=== PATIENT | female | born 1940 | race Caucasian/White ===

== ENCOUNTER 2016-05-23 18:28 | Emergency (ER) | payer MEDICARE, OTHER ==
[~2016-05-23] VITALS: Ht 157.4 cm; Wt 68.0 kg
[~2016-05-23 18:28] MED LIST: ASPIRIN81 MG PO; HYDR12.5C PO; HYDROCODONE BIT1 T11 PO; LEXAPRO10 MG PO; LEXAPRO20 MG PO; LISINOPRIL10 MG PO; NORCO 325 MG-51 TAB PO; OMEPRAZOLE20 MG PO; TRAZODONE HCL50 MG PO; TRAZODONE50 MG PO
[2016-05-23] MEDS ORDERED: HYDROCODONE BIT1 T11 PO (21:02)
== END 2016-05-23 21:04 | disposition home or self-care (01) ==
LOC: ED 18:28
DX: S93.402A Sprain of unspecified ligament of left ankle, initial encounter (principal); Z79.82 Long term (current) use of aspirin; W18.30XA Fall on same level, unspecified, initial encounter; Y93.01 Activity, walking, marching and hiking; Y92.096 Garden or yard of other non-institutional residence as the place of occurrence of the external cause; Y99.9 Unspecified external cause status

== ENCOUNTER 2017-11-16 16:09 | Emergency (ER) | payer MEDICARE, OTHER ==
[~2017-11-16] VITALS: Ht 160 cm; Wt 65.8 kg
[2017-11-16] MEDS ORDERED: Motrin,Rufen800 MG PO (18:14)
[2017-11-16] MEDS ORDERED: CYCLOBENZAPRINE5 M3 PO (18:14)
== END 2017-11-16 18:26 | disposition home or self-care (01) ==
LOC: ED 16:09
DX: S39.012A Strain of muscle, fascia and tendon of lower back, initial encounter (principal); Z79.899 Other long term (current) drug therapy; Z79.82 Long term (current) use of aspirin; Z98.890 Other specified postprocedural states; X50.0XXA Overexertion from strenuous movement or load, initial encounter; Y93.89 Activity, other specified; Y92.89 Other specified places as the place of occurrence of the external cause; Y99.8 Other external cause status

== ENCOUNTER 2020-05-01 13:46 | Emergency (ER) | payer MEDICARE, OTHER ==
[~2020-05-01] VITALS: Wt 68.0 kg
[~2020-05-01 13:46] MED LIST changes: +CYCLOBENZAPRINE5 M3 PO; +Motrin,Rufen800 MG PO
== END 2020-05-01 14:49 | disposition short-term general hospital (02) ==
LOC: ED 13:46
DX: S00.83XA Contusion of other part of head, initial encounter (principal); M79.622 Pain in left upper arm; M79.641 Pain in right hand; H57.89 Other specified disorders of eye and adnexa; I10 Essential (primary) hypertension; K21.9 Gastro-esophageal reflux disease without esophagitis; M79.7 Fibromyalgia; Z79.899 Other long term (current) drug therapy; Z79.82 Long term (current) use of aspirin; Z98.890 Other specified postprocedural states; W01.0XXA Fall on same level from slipping, tripping and stumbling without subsequent striking against object, initial encounter; Y93.89 Activity, other specified; Y92.89 Other specified places as the place of occurrence of the external cause; Y99.8 Other external cause status